=== PATIENT | female | born 1980 | race Caucasian/White ===

== ENCOUNTER 2019-03-20 07:28 | Inpatient (IN) | payer BC ==
[2019-03-16 11:41] LABS: BASOPHILS 0.5 % (0-2); EOSINOPHILS 2.2 % (0-7); HEMATOCRIT 39.9 % (36.0-48.0); HEMOGLOBIN 12.8 g/dL (12-16); IMMATURE GRANULOCYTES 0.2 % (0-5); LYMPHOCYTES 23.8 % (15-50); MCHC 32.1 g/dL (31.0-37.0); MCV 81.1 fL (80.0-100.0); MEAN PLATELET VOLUME 11.4 fL (7.4-10.4); NEUTROPHILS 68.3 % (40-80); PLATELET COUNT 276 10x3/uL (130-400); RBC 4.92 10x6/uL (4.00-5.40); RDW 14.8 % (11.5-14.5)
[2019-03-16 11:54] LABS: ANION GAP 11.4 mmol/L (8-16); CALCIUM 9.6 mg/dL (8.5-10.1); CARBON DIOXIDE 29.5 mmol/L (21.0-32.0); POTASSIUM - SERUM 3.9 mmol/L (3.5-5.1)
[2019-03-20] VITALS (11 sets, daily range): BP systolic 111–134; BP diastolic 55–65; Ht 172.7 cm; Wt 138.2 kg
[~2019-03-20] VITALS: Ht 172.7 cm; Wt 138.2 kg
--- NOTE | ~2019-03-20 | OP ---
PATIENT NAME: ANGELO NOBLE MEDICAL RECORD: [id number] :84 LOCATION:[facility] .1278 ADMISSION DATE: SURGEON: TOMAS HAMPTON MD DATE OF OPERATION: 03/20/2019 PREOPERATIVE DIAGNOSES: 1. Dysfunctional uterine bleeding. 2. Morbid obesity. POSTOPERATIVE DIAGNOSES: 1. Dysfunctional uterine bleeding. 2. Morbid obesity. PROCEDURES: 1. Diagnostic laparoscopy. 2. Total laparoscopic hysterectomy, abandoned for abdominal approach. 3. Bilateral salpingo-oophorectomy. SURGEON: Tomas Hampton MD VISUALIZATION DEVELOPER: Jimbo eKlley ANESTHESIOLOGIST: Harrison Tracy MD ANESTHETIC: General. FINDINGS: Uterus is enlarged. Both ovaries are unremarkable and tubes are interrupted bilaterally. The patient has 7 inches of subcutaneous tissue between skin and fascia. SPECIMENS REMOVED: 1. Uterus with cervix. 2. Bilateral ovaries. 3. Bilateral tubes. SPECIMEN DISPOSITION: All specimens to pathology. ESTIMATED BLOOD LOSS: Less than or equal to 800 cc. FLUIDS: 2100 cc lactated Ringer's and 2 units of packed red blood cells. URINE OUTPUT: 500 cc of clear urine. DRAINS: Green to gravity. COMPLICATIONS: None. INDICATION: The patient is a 38-year-old female with dysfunctional uterine bleeding. The patient has been counseled and has strong desire due to concerns of cancer and reoperation to have both ovaries removed. The patient has consented for total laparoscopic hysterectomy, bilateral salpingo-oophorectomy, and any indicated procedure. DESCRIPTION OF PROCEDURE: After informed consent was assured, the patient was taken to the operating room, where anesthetic was obtained. The patient was OPERATIVE REPORT [id number] ANGELO NOBLE prepped and draped and a 5-mm trocar was inserted in the umbilicus at the incision site. Pneumoperitoneum was developed and then accessory ports were placed in the right and left lower quadrants. Graspers were passed from the left side to the right, and right tube and ovary were elevated. Using the coagulation cutter, the infundibulopelvic ligament was compressed, coagulated, and . This dissection was carried down to the level of the vascular bundle, which was skeletonized, compressed, coagulated, and at the level of the internal os. Attention was now directed to the left side. Due to the patient's anatomy and the enlargement of the uterus, dissection began medial to the ovary with the intent to come back and remove the ovary and tube later. The dissection was carried across the uteroovarian ligament and round ligament. The anterior leaf of the broad ligament was opened and the bladder flap was developed. Vessels on the left side were skeletonized, compressed, coagulated, and . Due to the patient's obesity and the size of the uterus, the vaginal portion of the procedure began. The patient had her legs positioned and then a weighted speculum was introduced. The posterior cul-de-sac was entered sharply and the peritoneum was tagged to the vaginal mucosa. The patient's left leg began internally rotating and the knee was straightened. This was corrected twice, but due to the patient's leg size and position for the vaginal approach, the vaginal portion of this case had to be abandoned for fear of nerve damage to the patient. The patient's legs were taken out of the stirrups and she was placed supine on the table at this time. An incision was made in the lower abdomen and carried down to the underlying layer of the fascia, which was opened and the incision was carried out laterally. The rectus bellies were dissected free and then in the midline. The peritoneum was entered sharply. The uterus was identified. The bladder flap was fully developed and the remaining portions of the cardinal ligaments were clamped, cut, and tied. The top of the vagina was cross-clamped with Erickson clamps. The uterus was removed. Portion of the cervix remained and this was removed separately. Cuff was now closed with interrupted stitches. The right corner had some bleeding and this was controlled with a separate [id number] stitch. Attention was now directed to the left ovary. The left ovary was drawn immediately with [place] clamps and Erickson clamp placed over the infundibulopelvic ligament. One clamp was placed to meet this medially to laterally. The ovary was removed and 2 Erickson stitches were applied on these pedicles to obtain hemostasis. Reinspection of the cuff again revealed bleeding. It was elevated with a long Allis clamp and again a stitch was applied. Paris was now applied to the lower pelvis. Some bleeding was noted after the Paris was placed and this was cleared. The pelvis was again irrigated and the small bleeding vessels were noticed on the pelvic sidewall. This was isolated with DeBakeys and cauterized. The pelvis again was irrigated. Irrigant was removed and Paris was placed over the operative field with good results. The sponge count was correct times 1. The rectus bellies were inspected and the fascia was closed. After close of the fascia, the second count was correct. The subcutaneous tissue was closed with 2 running layers of plain gut. Once the subcutaneous tissue was closed, the skin incisions at both the trocar sites and the abdomen were closed with chris. Sterile dressing was applied. During this procedure, Bookwalter retractor was used. The Nataly that was attempted was too shallow. The count of the Bookwalter instrument reveals an extra piece and an x-ray was performed. TRANSINT:[id number] Voice Confirmation ID: [id number] DOCUMENT ID: [id number] OPERATIVE REPORT [id number] ANGELO NOBLE JOSEPH E MD CC: [id number] DICTATION DATE: 03/20/19 1509 WELDING MACHINE ASSEMBLER: 03/20/19 1704 [facility] [address] [id number]
[~2019-03-20 07:28] MED LIST: METFORMIN HCL500 M1 PO; PROVERA10 MG
[2019-03-20 09:33] LABS: HCG URINE NEGATIVE (NEGATIVE)
--- NOTE | 2019-03-20 15:46 | NUR ---
NO INSTRUMENTS SEEN ON X-RAY. REPORTED TO DR. HAMPTON
--- NOTE | 2019-03-20 16:20 | NUR ---
PT RCVD TO ROOM 1278 VIA BED FROM PACU. PT RATING PAIN 7/10 AT THIS TIME. LR INFUSING TO PT'S RIGHT FOREARM ORDERED, SEE EMAR FOR DOC. SCANT AMT VAGINAL BLEEDING NOTED, PERIPAD PLACED TO MONITOR. BARNES CATH DRAINING CLEAR YELLOW URINE, 250ML EMPTIED FROM UROMETER. SCD'S ON LE BILAT AND ON PUMP. PT DENIES NAUSEA AT THIS TIME. WILL SET UP AGENCY OPERATOR ORDERED.
--- NOTE | 2019-03-20 16:31 | NUR ---
MORPHINE KAIAKO KURA [place] MAORI STARTED ORDERED. PT INSTRUCTED ON MEDICATION AND KAIAKO K[place]A [place] MAORI BUTTON. DEMONSTRATES UNDERSTANDING.
--- NOTE | 2019-03-20 17:10 | NUR ---
DR HAMPTON PHONED TO VERIFY PT MAY HAVE TORADOL ORDERED WITH REPORTED EBL OF APPROX 500-800ML. DR HAMPTON ORDERS FOR PT TO HAVE TORADOL ORDERED, ADMIN GAS-X FOR PT C/O RIGHT SHOULDER PAIN, AND PT MAY HAVE FULL LIQUID DIET IN 1 HOUR IF TOLERATED.
--- NOTE | 2019-03-20 17:15 | NUR ---
PT POSITIONED UP IN BED AND TURNED TO RIGHT SIDE, PROPPED WITH PILLOW PER PT REQUEST FOR BACK DISCOMFORT. PT ENCOURAGED TO DEEP BREATHE, DONE WITH WEAK EFFORT PER PT PAIN. WILL REINFORCE WHEN PAIN WELL CONTROLLED.
--- NOTE | 2019-03-20 17:31 | NUR ---
PT ADMIN TORADOL INSTRUCTED WELL 1MG BOLUS DOSE OF MORPHINE ORDERED VIA TOWEL CABINET REPAIRER. PT ADMIN SIMETHICONE WELL. WILL APPLY TRANSDERMAL ESTRADERM PATCH ORDERED WHEN DELIVERED FROM PHARMACY.
--- NOTE | 2019-03-20 17:55 | NUR ---
PT ADMIN PRN ZOFRAN FOR C/O NAUSEA. COOL CLOTH TO FACE AND EMESIN BAG PROVIDED. SRUX2, CL IN REACH. FAMILY AT BEDSIDE. WILL CONT TO MONITOR.
--- NOTE | 2019-03-20 18:06 | NUR ---
DR HAMPTON PHONED WITH PT'S CONTINUED REPORTS OF UNRELIEVED PAIN DESPITE TORADOL ADMIN AND 1MG MORPHINE BOLUS DOSE. ORDER RCVD FOR 2MG DILAUDID IVP Q4H PRN MOD-SEVERE BREAKTHROUGH PAIN. WILL ADMIN ORDERED.
--- NOTE | 2019-03-20 18:12 | NUR ---
PT ADMIN 2MG DILAUDID IVP ORDERED, SEE EMAR FOR DOC.
--- NOTE | 2019-03-20 18:45 | NUR ---
PT RESTING IN BED, REPORTS SOME PAIN RELIEF FROM DILAUDID, RATES PAIN 7/10 AT THIS TIME. NEW ICE PACK PROVIDED TO ABD AND ROOM TEMP DECREASED PER PT REQUEST. AX TEMP 98.5. PT INSTRUCTED ON MED DOSE TIMES AND OXYGEN SATS OF 94% ON APPROX 3L O2 VIA NC. UNDERSTANDING VERBALIZED. PT EATING ICE WITH FAMILY MEMBER AT BEDSIDE.
--- NOTE | 2019-03-20 19:15 | NUR ---
PT REC'D IN BED AT THIS TIME. PT STATES THAT PAIN IS A 7 BUT IS UNABLE TO REMAIN AWAKE FOR ASSESSEMNT. IV OF LR INFUSING TO THE LEFT WRIST AT 125 ML/HR. SITE CLEAR AND PATENT AT THIS TIME. LUNGA CLEAR. O2 AT 3L VIA NC NOTED. POX 97%. BS HYPOACTIVE TO ALL QUADRANTS. DRESSING TO ABDOMEN CDI. BARNES CATH PATENT WITH YELLOW URINE NOTED. SCDS ON AND FUNCTIONAL. NO ACUTE DISTRESS NOTED AT THIS TIME. NO ACUTE DISTRESS NOTED. SIDERAILS UP FOR SAFETY X2. CALL LIGHT IN PT REACH. Dolly GARCIA RN
--- NOTE | 2019-03-20 19:35 | NUR ---
NEW LANDSCAPE AND YARDWORK LABORER VIAL UP AT THIS TIME. Dolly GARCIA RN
--- NOTE | 2019-03-20 21:30 | NUR ---
PT RESTING WITH EYES CLOSED, RESP QUIET, NO DISTRESS NOTED, LEFT UNDISTURBED AT THIS TIME, BED IN LOW POSITION, SIDE RAILS X 2, CALL LIGHT IN REACH, FAMILY AT BEDSIDE
--- NOTE | 2019-03-20 22:35 | NUR ---
PT AWAKE, DENIES NEEDS AT THIS TIME, S/O AT BEDSIDE
--- NOTE | 2019-03-20 23:38 | NUR ---
PT GIVEN IV TORADOL AT THIS TIME FOR PAIN LEVEL OF 6-7. PT STATES THAT PAIN IS TOLERABLE. MERON GARCIA RN
--- NOTE | 2019-03-20 23:49 | NUR ---
NEW VIAL OF MORPHINE TO TOOL REPAIR TECHNICIAN, THIS RN AND FARZAD BURTON RN VERIFIED ORDERS
[2019-03-21 00:19] VITALS: BP 124/65
--- NOTE | 2019-03-21 00:19 | NUR ---
PT AROUSES TO OPENING OF DOOR, VS OBTAINED, PT RATES INC PAIN 02/13, DENIES NEEDS AT THIS TIME, SCD'S CONTINUE ON AND WORKING PROPERLY, BED IN LOW POSITION, SIDE RAILS X 2, CALL LIGHT IN REACH, S/O AT BEDSIDE
--- NOTE | 2019-03-21 01:15 | NUR ---
PT LASER SET UP OPERATOR LIGHT, REQUESTED AND PROVIDED FRESH ICE PACK, DENIES FURTHER NEEDS
--- NOTE | 2019-03-21 02:33 | NUR ---
PT AWAKE, RATES INC PAIN 01/13, FRESH ICE SERVED, ASSISTED S/O WITH PULL OUT COUCH, SCD'S ON AND WORKING PROPERLY, PT DENIES FURTHER NEEDS, BED IN LOW POSITION, SIDE RAILS X 2, CALL LIGHT IN REACH
--- NOTE | 2019-03-21 03:13 | NUR ---
NEW BAG OF LR HUNG TO INFUSE VIA PUMP AT 125 ML/HR, PT DENIES NEEDS AT THIS TIME
--- NOTE | 2019-03-21 03:20 | NUR ---
KELSI GARCIA RN TO RESUME CARE OF PT
[2019-03-21 05:12] VITALS: BP 111/55
--- NOTE | 2019-03-21 05:34 | NUR ---
PT REC'D IN BED RESTING AT THIS TIME. TORADOL 15 MG GIVEN PER MD ORDER. Dolly GARCIA RN
[2019-03-21 07:22] LABS: BASOPHILS 0.1 % (0-2); EOSINOPHILS 0 % (0-7); HEMATOCRIT 36.1 % (36.0-48.0); HEMOGLOBIN 11.5 g/dL (12-16); IMMATURE GRANULOCYTES 0.3 % (0-5); LYMPHOCYTES 8.2 % (15-50); MCH 26.1 pg (26.0-34.0); MCHC 31.9 g/dL (31.0-37.0); MONOCYTES 8.2 % (2-11); NEUTROPHILS 83.2 % (40-80); PLATELET COUNT 240 10x3/uL (130-400); RDW 14.8 % (11.5-14.5); WBC 14.3 10x3/uL (4.8-10.8)
[2019-03-21 07:30] VITALS: BP 118/58
--- NOTE | 2019-03-21 07:30 | NUR ---
NEW ORDERS RECEIVED BY PHONE FROM DR HAMPTON TO D/C SURVEYOR INSTRUMENT ASSISTANT AND BARNES AND MAY SALINE LOCK IV. KEEP TORDAL IV SCHEDULED AND ADVANCE DIET TOLERATED. PT IS AGREEABLE TO THIS PLAN OF CARE AND DENIES ANY QUESTIONS OR CONCERNS. IV SALINE LOCKED, MORPHINE SURVEYOR INSTRUMENT ASSISTANT D/C AND WASTED IN PYXIS. BOWEL SOUNDS ACTIVE X 4 ALTHOUGH NOTED TO BE HYPOACTIVE IN BOTH LOWER QUADRANTS. LARGE WHITE ABD DRESSING COVERS BIKINI INCISION AND IT IS CLEAN AND DRY, ABD SOFT TO TOUCH. BARNES CATH REMOVED PER PROTOCOL WITH 300ML DARK CLEAR URINE NOTED TO CANISTER. SCD REMOVED AND PT ABLE TO MOVE HERSELF UP TO SITTIN ON SIDE OF BED WITHOUT ASSISTANCE. SHE DOES COMPLAIN OF SLIGHT DIZZINES, INSTRUCTED TO REMAIN SITTING UNTIL THAT PASSES.
[2019-03-21 07:37] LABS: CALC OSMOLALITY 276 mosm/kg (275-300); CALCIUM 7.9 mg/dL (8.5-10.1); CARBON DIOXIDE 25.8 mmol/L (21.0-32.0); CHLORIDE - SERUM 103 mmol/L (98-107); CREATININE - SERUM 0.9 mg/dL (0.6-1.3); GLUCOSE 130 mg/dL (74-106); POTASSIUM - SERUM 4.3 mmol/L (3.5-5.1); SODIUM 137 mmol/L (136-145); UREA NITROGEN 14 mg/dL (7-18); eGFR NON AFRICAN AMERICAN 75 mL/min (90-120)
--- NOTE | 2019-03-21 07:45 | NUR ---
AMB TO BATHROOM WITH LITTLE ASSISTANCE BUT UNABLE TO VOID AT THIS TIME. GOWN CHANGED. MESH PANTIES ON AND RENEE PAD. BACK TO BED AND POSITIONS SELF FOR COMFORT. UNSWEET TEA PER REQUEST AND DIETARY NOTIFIED FOR REGULAR DIET. DENIES OTHER NEEDS. YUN LIGHT IN REACH. RATES PAIN AT 3-4/10.
--- NOTE | 2019-03-21 07:47 | NUR ---
o2 discontinued at this time. natan napoles
--- NOTE | 2019-03-21 09:30 | NUR ---
CALLED TO ROOM, PT STATES THAT WITH ASSISTANCE FROM HER SPOUSE SHE GOT UP TO BATHROOM AND WAS ABLE TO VOID. 600ML CLEAR URINE NOTED TO COLLECTION HAT. CONTINUE TO RATE PAIN AT 3-4/10 BUT DENIES NEED FOR PAIN MED. CALL LIGHT IN REACH AND FAMILY AT BEDSIDE.
--- NOTE | 2019-03-21 11:00 | NUR ---
TORDAL SIVP PER ORDERS. RATES PAIN AT 5/10. LARGE CUP OF ICE PER REQUEST. NO OTHER NEEDS VOICED.
--- NOTE | 2019-03-21 11:45 | NUR ---
PAIN REASSESMENT WITH PAIN AT 3/10 AT THIS TIME. PT ALSO STATES THAT SHE HAS GOTTEN BACK UP TO BATHROOM, SPOUSE AT BEDSIDE. VOIDED 400ML CLEAR URINE. UNDERSTANDS THAT URINE NO LONGER HAS TO BE MEASURED. NO NEEDS VOICED AT THIS TIME.
--- NOTE | 2019-03-21 15:15 | NUR ---
CALLED TO ROOM, PT C/O OF SALINE LOCK "ITCHING" AND ASK THAT IT BE REMOVED. DR HAMPTON NOTFIED AND ORDERS RECEIVED FOR PO TORDAL. SALINE REMOVED INTACT. NO OTHER NEEDS AT THIS TIME. RATES PAIN AT 4/10 AT INCISION SITE. FAMILY AT BEDSIDE.
[2019-03-21 16:00] VITALS: BP 120/55
--- NOTE | 2019-03-21 16:30 | NUR ---
UP TO SHOWER, BED LINENS CHANGED AT THIS TIME. PT DENIES NEEDING ASSISTANCE WITH BANDAGE REMOVEAL. SHE ALSO DENIES DIZZINES WHILE IN SHOWER AND UNDERSTANDS TO USE EMERGENCY CALL LIGHT IF NURSE IS NEEDED. SPOUSE REMAINS IN ROOM AT THIS TIME.
--- NOTE | 2019-03-21 17:00 | NUR ---
OUT OF SHOWER AND INCISION ASSESSED. NOTED TO HAVE AREA ON LEFT UNDER INCISION THAT APPEARS TO BE "OOZING BLOOD" AREA CLEANED WITH WET CLOTH, APPEARS THIS IS WHERE TAPE WAS AND WHEN REMOVED CAUSES SKIN ABRASION, NO OTHER AREA OF BLEEDING NOTED. INCISION COVERED WITH RENEE PAD. PT RATES PAIN AT 7/10, PERCOCET 10/325MG GIVEN SCANNED TO EMAR.
--- NOTE | 2019-03-21 17:45 | NUR ---
TORDAL 10PO GIVEN SCHEDULED. RATES PAIN AT 6/10 AND STATES JUST PRESSURE AND BURNING AT INCISION SITE. FAMLY AT BEDSIDE, NO OTHER NEEDS VOICED AT THIS ITME.
--- NOTE | 2019-03-21 18:00 | NUR ---
CALLED TO ROOM, PT UP TO VOID BUT NO FAMILY IN ROOM AND DID NOT WANT TO GET UP WITHOUT SOMEONE PRESENT. NO ASSISTANCE WAS NEEDED AND VOIDED WITHOUT COMPLAINT. CONTINUE TO C/O BURNING AT INCISION SITE. RENEE PAD CHECKED AND NO ACTIVE BLEEDING NOTED. NEW PAD OVER INCISION AND PT PROVIED WITH ICE PACK TO ASSIST WITH PAIN CONTROL. RATES PAIN AT 5/10. SIDE RAILS UP X 2 WITH CALL LIGHT IN REACH.
--- NOTE | 2019-03-21 19:25 | NUR ---
PM ROUNDS MADE, PT VISITING WITH FAMILY AND FRIENDS, INFORMED PT THAT I WILL BE BACK SHORTLY TO DO ASSESSMENT, PT VERBALIZES UNDERSTANDING, DENIES NEEDS AT THIS TIME
[2019-03-21 20:15] VITALS: BP 117/61
--- NOTE | 2019-03-21 20:15 | NUR ---
ASSESSMENT PER FLOW SHEET, VS OBTAINED, BIKINI INC WITH SPEEDY INTACT, SMALL DRAINAGE NOTED ON ABD PAD, WILL CONTINUE TO MONITOR DRAINAGE, CLEAN RENEE PAD OVER INC, PT DENIES FLATUS, NO BM, AND VOIDING WITH NO DIFFICULTY, PT INST ON AND DEMONSTRATED I.S. WITH GOOD EFFORT, WHEN I ASKED PT IF SHE HAS AMB TODAY, PT REPORTS THAT SHE WAS TOLD NOT TO, BUT SHE HAS AMB TO BR, PT INST TO WALK THE [place] TONIGHT AT LEAST ONCE BEFORE GOING TO BED, PT VERBALIZES UNDERSTANDING, SCD'S APPLIED AND WORKING PROPERLY, PT REQUESTED AND SERVED FRESH H20, INFORMED PT THAT I WILL BE BACK IN SHORTLY TO ADM PAIN MED, PT DENIES FURTHER NEEDS, FAMILY AT BEDSIDE
--- NOTE | 2019-03-21 20:50 | NUR ---
ADM PAIN MED PER MD ORDERS, SEE EMAR, PT DENIES FURTHER NEEDS
--- NOTE | 2019-03-21 21:30 | NUR ---
PT AWAKE, PT REPORTS AMB AROUND UNIT 3 TIMES, PT READY FOR BED, SCD'S BACK ON, RECONNECTED AND WORKING PROPERLY, DENIES NEEDS AT THIS TIME
--- NOTE | 2019-03-21 22:22 | NUR ---
PT RESTING, AROUSES TO OPENING OF DOOR, REQUESTED AND PROVIDED FAN, DENIES FURTHER NEEDS, BED IN LOW POSITION, SIDE RAILS X 2, CALL LIGHT IN REACH
[2019-03-21 23:49] VITALS: BP 101/56
--- NOTE | 2019-03-21 23:49 | NUR ---
PT RESTING WITH EYES CLOSED, AROUSES TO SOFT VERBAL STIMULATION, VS OBTAINED, ADM TORADOL PER MD ORDERS, SEE EMAR, PT UP TO BR, GAIT STEADY, VOIDED BY SELF WITH NO DIFFICULTY, SMALL DRAINAGE NOTED, TO LEFT SIDE OF INC, RENEE PAD OVER INC, CLEAN RENEE PANTIES APPLIED, PT BACK TO BED, SMALL PRESSURE DRESSING APPLIED, SCD'S RECONNECTED AND WORKING PROPERLY, DENIES FURTHER NEEDS, BED IN LOW POSITION, SIDE RAILS X 2, CALL LIGHT IN REACH
--- NOTE | 2019-03-22 00:30 | NUR ---
PT RESTING WITH EYES CLOSED, RESP QUIET, NO DISTRESS NOTED, LEFT UNDISTURBED AT THIS TIME
--- NOTE | 2019-03-22 00:50 | NUR ---
DR HAMPTON TO ROOM
--- NOTE | 2019-03-22 00:56 | NUR ---
DR HAMPTON OUT OF ROOM, INFORMED DR HAMPTON TO WHERE THE SMALL DRAINAGE WAS, HE REPORTS THAT HE REMOVED AND REPLACED THE PRESSURE DRESSING FOR EVALUATION
--- NOTE | 2019-03-22 02:35 | NUR ---
PT RESTING WITH EYES CLOSED, RESP QUIET, NO DISTRESS NOTED, LEFT UNDISTURBED AT THIS TIME, BED IN LOW POSITION, SIDE RAILS X 2, CALL LIGHT IN REACH
[2019-03-22 05:27] VITALS: BP 120/66
--- NOTE | 2019-03-22 05:27 | NUR ---
PT AWAKE, VS OBTAINED, REPORTS GETTING UP TO VOID WITH KELSI GARCIA, CARLY, SCD'S RECONNECTED AND WORKING PROPERLY, ADM TORADOL AND PERCOCET PER MD ORDERS SEE, EMAR, PT REQUESTS MYLICON
--- NOTE | 2019-03-22 05:36 | NUR ---
ADM MYLICON PER MD ORDERS, SEE EMAR, PT DENIES FURTHER NEEDS, BED IN LOW POSITION, SIDE RAILS X 2, CALL LIGHT IN REACH
--- NOTE | 2019-03-22 06:19 | NUR ---
PT RESTING WITH EYES CLOSED, RESP QUIET, NO DISTRESS NOTED, LEFT UNDISTURBED AT THIS TIME
--- NOTE | 2019-03-22 07:45 | NUR ---
AM ASSESSMENT COMPLETED. PAIN AT 2/10 AT THIS TIME. SCD'S REMOVED SO THAT PT CAN GET UP TO VOID.
--- NOTE | 2019-03-22 08:30 | NUR ---
INCISION COVERED WITH BANDAGE THAT HAS NO NEW SIGNS OF DRAINAGE.
--- NOTE | 2019-03-22 09:19 | NUR ---
DR HAMPTON CALLS. ORDERS RECEIVED TO DC HOME AFTER NOON TODAY AND STAPLE REMOVAL WEDNESDAY.
--- NOTE | 2019-03-22 10:45 | NUR ---
Pt amb in halls x 2 with spouse. C/O of increase in pressure to incision site. But also states that she is passing more gas while walking. Positive encouragment given on progress.
[2019-03-22] MEDS ORDERED: ESTRACE1 MG PO (11:53)
[2019-03-22] MEDS ORDERED: NEURONTIN 300300 MG PO (11:54)
[2019-03-22] MEDS ORDERED: MOBIC7.5 MG PO (11:54)
[2019-03-22] MEDS ORDERED: PERCOCET 7.5/321 TAB PO (11:54)
--- NOTE | 2019-03-22 12:03 | NUR ---
pt calls out stating that she is ready for discharge at this time if possible.
--- NOTE | 2019-03-22 12:34 | NUR ---
ABDOMINAL BINDER ON. PT TO BED. C/O INCISIONAL PAIN OF "4" ON 0-10 PAIN SCALE. PERCOCET 10/325 AND TORADOL 10 MG GIVEN PO ORDERED.
--- NOTE | 2019-03-22 12:45 | NUR ---
Verbal and written d/c instructions gone over without questions or concerns. she states her understanding of s/s infections and to return to ER if she has any of these. Provided with written scripts for Neurotin 300mg, Mobic 15mg and Percocet 7.5mg and is able to verbally explain how Dr Robin instructed her to take. Printed info on each script provided with discharge papers. Take out by wheelchair, home by private car with spouse.
== END 2019-03-22 12:30 | disposition home or self-care (01) | DRG 742 ==
LOC: D.OPS 07:28 → D.LD 07:28 → D.OPS 09:45 → D.PAN 10:45 → D.OPS 10:45 → D.LD 14:50 → D.OPS 16:07 → D.LD 16:07
PROVIDERS: ADMIT Obstetrics & Gynecology; ATTEND Obstetrics & Gynecology
PROC: 0UT90ZZ Resection of Uterus, Open Approach (ICD-10-PCS; principal; 2019-03-20 09:45)
PROC: 0UT70ZZ Resection of Bilateral Fallopian Tubes, Open Approach (ICD-10-PCS; 2019-03-20 09:45)
PROC: 0UT20ZZ Resection of Bilateral Ovaries, Open Approach (ICD-10-PCS; 2019-03-20 09:45)
DX: N93.8 Other specified abnormal uterine and vaginal bleeding (principal); Z68.42 Body mass index [BMI] 45.0-49.9, adult; E66.01 Morbid (severe) obesity due to excess calories

== ENCOUNTER 2019-03-23 18:23 | Inpatient (IN) | payer BC ==
[~2019-03-23 18:23] MED LIST changes: +ESTRACE1 MG PO; +MOBIC7.5 MG PO; +NEURONTIN 300300 MG PO; +PERCOCET 7.5/321 TAB PO
[2019-03-23 19:26] VITALS: BP 136/81
[2019-03-23 21:03] LABS: BASOPHILS 0.1 % (0-2); EOSINOPHILS 0.4 % (0-7); HEMATOCRIT 35.8 % (36.0-48.0); HEMOGLOBIN 11.6 g/dL (12-16); IMMATURE GRANULOCYTES 0.2 % (0-5); MCH 26.6 pg (26.0-34.0); MCHC 32.4 g/dL (31.0-37.0); MCV 82.1 fL (80.0-100.0); MEAN PLATELET VOLUME 10.7 fL (7.4-10.4); MONOCYTES 5.3 % (2-11); PLATELET COUNT 254 10x3/uL (130-400); RBC 4.36 10x6/uL (4.00-5.40); RDW 15.1 % (11.5-14.5); WBC 16.8 10x3/uL (4.8-10.8)
[2019-03-23 21:12] LABS: ANION GAP 12.4 mmol/L (8-16); CALCIUM 8.6 mg/dL (8.5-10.1); CARBON DIOXIDE 26.4 mmol/L (21.0-32.0); POTASSIUM - SERUM 3.8 mmol/L (3.5-5.1)
[2019-03-23 22:46] VITALS: BP 136/81
[2019-03-24] VITALS: BP 121/69
[2019-03-24 04:44] VITALS: BP 141/72
--- NOTE | 2019-03-24 07:55 | NUR ---
AWAKE AND ALERT. ORIENTED X3.NO C/O AT THIS TIME. LUNGS ARE CLEAR BILATERALLY, NO COUGH NOTED. SKIN IS INTACT WTIHOUT REDNESS EXCEPT INCISION TO LOWER MID ABDOMEN WHICH HAS A DRY INTACT DRESSING IN PLACE. 2 SMALL INSERTION SITES NOTED WELL. IV TO LEFT HAND IS PATENT WITHOUT REDNESS AT INSERTION SITE. BREAKFAST SERVED IN ROOM. DENIES NEEDS. REPORTS NO BM SINCE LAST WEDNESDAY. WILL MONITOR.
[2019-03-24 08:29] LABS: APPEARANCE HAZY (CLEAR); BACTERIA FEW /hpf (NONE SEEN); BILIRUBIN NEGATIVE (NEGATIVE); COLOR YELLOW (YELLOW); EPITHELIAL CELLS 0-5 /hpf (0-5); GLUCOSE NEGATIVE (NEGATIVE); KETONE NEGATIVE (NEGATIVE); MUCUS <1+ /lpf (NONE SEEN); NITRITE NEGATIVE (NEGATIVE); PROTEIN NEGATIVE (NEGATIVE); RED CELLS - URINE OCC /hpf (0-5); WHITE CELLS - URINE 0-5 /hpf (0-5)
--- NOTE | 2019-03-24 09:00 | NUR ---
ATE ABOUT HALF OF BREAKFAST. AMBULATED 200 FEET IN HALLWAY WITH SBA. NO INCREASED PAIN WITH ACTIVITY.
[2019-03-24 09:20] VITALS: BP 92/53
[2019-03-24 09:24] VITALS: BP 106/46
--- NOTE | 2019-03-24 11:15 | NUR ---
REQUESTED AND GIVEN 10MG OXY PO FOR C/O ABDOMINAL PAIN LEVEL 7. WILL MONITOR.
--- NOTE | 2019-03-24 12:00 | NUR ---
ATE ABOUT HALF OF LUNCH TRAY. DENIES NEEDS.
[2019-03-24 13:47] VITALS: BP 143/79
--- NOTE | 2019-03-24 14:00 | NUR ---
AMBULATED OVER 200 FEET IN HALLWAY WITH . DENIES NEEDS.
--- NOTE | 2019-03-24 16:00 | NUR ---
RESTING QUIETLY IN BED. DENIES NEEDS. NO C/O PAIN AT THIS TIME.
--- NOTE | 2019-03-24 18:18 | NUR ---
ATE ABOUT 25% OF SUPPER. DENIES NEEDS. NO CHANGES NOTED.
[2019-03-25] VITALS: BP 110/61
[2019-03-25 04:00] VITALS: BP 119/59
--- NOTE | 2019-03-25 07:20 | NUR ---
PT SITTING AT BEDSIDE, IV TO RIGHT HAND WITH NORMAL SALINE INFUSING AT 150/HR. VOICES SHE STILL HAS NOT HAD BM. MIRALAX ORDERED AND ADMINISTERED. WILL NOTE ANY CHANGE.
--- NOTE | 2019-03-25 07:37 | NUR ---
DR HAMPTON TO CALL THIS AM WITH NEW ORDERS.
[2019-03-25 07:59] VITALS: BP 137/82
[2019-03-25 08:21] LABS: BASOPHILS 0.2 % (0-2); HEMOGLOBIN 10.3 g/dL (12-16); IMMATURE GRANULOCYTES 0.5 % (0-5); LYMPHOCYTES 12.9 % (15-50); MCH 26.3 pg (26.0-34.0); MCHC 32.2 g/dL (31.0-37.0); MCV 81.6 fL (80.0-100.0); MEAN PLATELET VOLUME 10.2 fL (7.4-10.4); MONOCYTES 8.5 % (2-11); NEUTROPHILS 76.9 % (40-80); PLATELET COUNT 230 10x3/uL (130-400); RBC 3.92 10x6/uL (4.00-5.40); RDW 15.1 % (11.5-14.5)
--- NOTE | 2019-03-25 09:00 | NUR ---
REPORTS LARGE BM. VOICES DISCOMFORT IN ABDOMEN AREA. MEDICATION ADMINISTERED PRESCRIBED.
--- NOTE | 2019-03-25 10:50 | NUR ---
I CALLED [facility] IN THE PHARMACY TO SEE WHERE THE CIPRO WAS THAT I HAD ORDERED PER DR HMAPTON. HE STATES THAT THEY "SUBSTITUTE LEVAQUIN FOR CIPRO IV".
--- NOTE | 2019-03-25 10:55 | NUR ---
I have reviewed this patient and I concur with the Shift Assessment completed by the Licensed Practical Nurse today this shift.
[2019-03-25 11:36] VITALS: BP 113/58
--- NOTE | 2019-03-25 14:00 | NUR ---
REPORTS PAIN OF 5/10 IN ABDOMEN AT THIS TIME, GIVEN 5 OXYCODONE PER ORDERS, WILL CONTINUE TO OBSERVE.
[2019-03-25 15:32] VITALS: BP 137/78
--- NOTE | 2019-03-25 19:30 | NUR ---
PT RESTING IN BED, NO SIGN OF DISTRESS. BREATHING EQUAL AND NONLABORED. INCISION ON LOWER ABDOMEN NOTED WITH SLIGHT PINK DRAINAGE. REQUESTING TYLENOL FOR HEADACHE, ADMINISTERED PER DRS ORDERS. WILL CONTINUE TO MONITOR. DENIES ANY FURTHER NEEDS AT THIS TIME TIME. BED LOW, CALL LIGHT IN REACH, RAILS UP X 2.
[2019-03-25 20:05] VITALS: BP 134/80
[2019-03-26 01:08] VITALS: BP 134/81
[2019-03-26 04:00] VITALS: BP 130/73
--- NOTE | 2019-03-26 07:35 | NUR ---
PT AAOX4 RESP EVEN AND NONLABORED NO SIGNS OF DISTRESS NOTED, TEMP 99.7 WILL CHECK EMAR AND ADMINSTER TYENOL PER PROTOCOL FOR LOW GRADE TEMP, ABLE TO VOICE WANTS AND NEEDS NONE EXPRESSED AT THIS TIME, ABDMONIAL INCISION C/D/I WITH ABD PAD AND MESS PANTIES OVER IT, WILL CONTINUE TO MONITOR CL IN [facility]
[2019-03-26 07:43] VITALS: BP 116/64
[2019-03-26 11:19] VITALS: BP 132/89
--- NOTE | 2019-03-26 11:28 | NUR ---
I have reviewed this patient and I concur with the Shift Assessment completed by the Licensed Practical Nurse today this shift.
[2019-03-26 15:20] VITALS: BP 131/75
--- NOTE | 2019-03-26 16:49 | NUR ---
PT AMBULATING IN HALLS AT THIS TIME NO SIGNS OF DISTRESS NOTED
--- NOTE | 2019-03-26 19:12 | NUR ---
PATIENT RESTING IN BED WITH NO S/S OF DISTRESS AND DENIES NEEDS AT THIS TIME. BED IN LOWEST POSITION AND CALL LIGHT WITHIN REACH. ENCOURAGED THE PATIENT TO CALL IF SHE HAS NEEDS. WILL CONTINUE TO MONITOR.
--- NOTE | 2019-03-26 19:58 | NUR ---
SPOKE WITH DR. HAMPTON IN REGARDS TO PATIENT STATING SHE NEEDS SOMETHING FOR HEARTBURN. DR. HAMPTON ORDERED TUMS AND PEPCID FOR THE PATIENT. WILL CALL [facility] TO PULL MEDS
[2019-03-26 20:12] VITALS: BP 113/55
--- NOTE | 2019-03-26 20:30 | NUR ---
SPOKE TO THE ROVING INSPECTOR IN REGARDS TO PULLING TUMS AND PEPCID FOR PATIENT
[2019-03-27 00:23] VITALS: BP 133/72
[2019-03-27 04:37] VITALS: BP 141/95
--- NOTE | 2019-03-27 07:30 | NUR ---
AWAKE AND ALERT. ORIENTED X3. NO C/O AT THIS TIME. LUNGS ARE CLEAR BILATERALLY, NO COUGH NOTED. SKIN IS INTACT WITHOUT REDNESS EXCEPT INCISION TO MID LOWER ABDOMEN AND 3 INSERTION SITES WHICH ARE ALL CLEAN AND DRY. CLIPS INTACT TO INCISION. IV TO LEFT FOREARM IS PATENT WITHOUT REDNESS AT INSERTION SITE. DENIES NEEDS.
[2019-03-27 07:35] VITALS: BP 151/86
[2019-03-27] MEDS ORDERED: DIFLUCAN150 MG PO (07:38)
[2019-03-27] MEDS ORDERED: FLAGYL500 MG PO (07:39)
[2019-03-27] MEDS ORDERED: CIPRO500 MG PO (07:40)
--- NOTE | 2019-03-27 08:10 | NUR ---
CLIPS D/C WITHOUT COMPLICATIONS. STERI STRIPS APPLIED TO AREA. PATIENT INSTRUCTED IN CARE. ALL QUESTIONS ANSWERED.
--- NOTE | 2019-03-27 09:00 | NUR ---
DISCHARGED TO HOME AMBULATORY WITH . DISCHARGE INSTRUCTIONS GIVEN BOTH VERBALLY AND WRITTEN. ALL QUESTIONS ANSWERED. PATIENT AND SPOUSE VERBALIZED UNDERSTANDING OF SAME. NEEDED PRESCRIPTIONS GIVEN TO PATIENT. IV TO LEFT FOREARM D/C WITH CATHETER INTACT. ALL BELONGINGS WITH PATIENT.
--- NOTE | 2019-03-27 09:30 | MORECARE ---
CASE MANAGEMENT DISCHARGE SUMMARY PATIENT: ANGELO NOBLE UNIT: [id number] ADM DATE: 03/23/19 AGE: 38 : 84 SEX: F ROOM/BED: D.1204 AUTHOR: CARLOS GARRETT PHYSICIAN: REFERRING PHYSICIAN: KALEY HAMPTON MD DATE OF SERVICE: 03/27/19 Discharge Plan Patient Name: ANGELO NOBLE [facility] [facility] 1980 Planned Disposition: Anticipated Discharge Date: Discharge Date: 03/27/2019 Expected LOS: Initial Reviewer: [email or web address] Initial Review Date: 03/27/2019 Generated: 03/27/19 10:29 am Patient Name: ANGELO NOBLE Page [phone] at 0930 All edits/amendments must be made on the electronic document DICTATION DATE: 03/27/19928 KNOWLEDGE ENGINEER: ASHLEY 03/27/19928 RPT#: [id number] DC DATE:03/27/19 STATUS: DIS IN [facility] [address] [place] [address] END OF REPORT
== END 2019-03-27 09:00 | disposition home or self-care (01) | DRG 864 ==
LOC: OBSVTIME 18:23 → D.M3 18:23
PROVIDERS: ADMIT Obstetrics & Gynecology; ATTEND Obstetrics & Gynecology
DX: R50.82 Postprocedural fever (principal); N99.89 Other postprocedural complications and disorders of genitourinary system; E11.9 Type 2 diabetes mellitus without complications